=== PATIENT | female | born 1960 | race African-American/Black ===

== ENCOUNTER 2025-04-27 10:17 | Outpatient (AMB) | payer OTHER, SELFPAY ==
--- OUTSIDE RECORDS SUMMARY | 2024-05-26 09:30 | XMS_ITS ---
Author Organization [facility] Address [address] [place] [address] Care Team Providers Care Bonding Molder Name Role Phone Yanni Nguyen Primary Care Provider Unavaila ble Hui Fontaine Unavailable [phone] Alberto Dooley [phone] Encounters Encounter Location Date Provider Diagnosis [address] [address] 05/26/2024 Alberto Dooley Plan Of Treatment No Information Progress Notes * Adrienne BRYSON RDOB: [birth year] (64 yo F)Acc No.[id number]:05/26/2024 Progress Note Patient: Lisa WEBSTER Adrienne Ruiz Provider: Chase Dooley D.P.M. :1960 A ge:63 Y S ex:Female Date:05/26/2024 [facility] Pcp:Yanni Nguyen Subjective: * Chief Complaints: * * Medical History: Objective: * Vitals: Assessment: Plan: * Treatment: * Images: * The named appointment provid er may or may not be the originator of this progress note, and it is not deemed complete until electronically signed by the appointment provider. Sign off status: Pending * Provider: Chase Dooley D.P.M. Date: 0 05/26/2024 Generated for Alin hays/Fasánchez/eTransmitting on: 06/28/2024 12:25 PM EST
--- OUTSIDE RECORDS SUMMARY | 2024-05-31 03:00 | XMS_ITS ---
Author Organization [facility] Address [address] [place] [address] Care Team Providers Care Expeller Operator Name Role Phone Yanni Nguyen Primary Care Provider Unavaila ble Hui Fontaine Unavailable [phone] Alberto Dooley [phone] Encounters Encounter Location Date Provider Diagnosis [address] [address] 05/31/2024 Alberto Dooley Plan Of Treatment No Information Progress Notes * Adrienne BRYSON RDOB: [birth year] (64 yo F)Acc No.[id number]:05/31/2024 Progress Note Patient: Lisa WEBSTER Adrienne Ruiz Provider: Chase Dooley D.P.M. :1960 A ge:63 Y S ex:Female Date:05/31/2024 [facility] Pcp:Yanni Nguyen Subjective: * Chief Complaints: * * Medical History: Objective: * Vitals: Assessment: Plan: * Treatment: * Images: * The named appointment provid er may or may not be the originator of this progress note, and it is not deemed complete until electronically signed by the appointment provider. Sign off status: Pending * Provider: Chase Dooley D.P.M. Date: 0 05/31/2024 Generated for Alin hays/Fasánchez/eTransmitting on: 06/28/2024 12:25 PM EST
--- NOTE | 2025-04-27 10:19 | MHC.PC.OV ---
Vital Signs 04/27/25 10:29 Height 5 ft 8.39 in Weight 230 lb BMI 34.6 BP 110/66 Blood Pressure Location Lt brachial Position Sitting Respiration 18 Pulse 76 Pulse Source Pulse Oximeter Temp 97.7 F Temp Source Temporal Artery Scan Pulse Oximetry (%) 98 Oxygen Delivery Method Room Air Intake Visit Reasons: Re-establish/Physical Compliance Intern Required: No Accompanied by: Self / Same As Patient Allergies codeine Adverse Reaction (Intermediate, Verified 04/27/25 10:19) Hallucinations hydromorphone (From Dilaudid) Adverse Reaction (Intermediate, Verified 04/27/25 10:19) Hallucinations latex Adverse Reaction (Intermediate, Verified 04/27/25 10:19) Itching methocarbamol (From Robaxin) Adverse Reaction (Intermediate, Verified 04/27/25 10:19) Abdominal Pain moxifloxacin (From Avelox) Adverse Reaction (Intermediate, Verified 04/27/25 10:19) urticaria oxycodone Adverse Reaction (Intermediate, Verified 04/27/25 10:19) Hallucinations sulfamethoxazole (From Bactrim) Adverse Reaction (Intermediate, Verified 04/27/25 10:19) Hives trimethoprim (From Bactrim) Adverse Reaction (Intermediate, Verified 04/27/25 10:19) Hives naproxen Adverse Reaction (Unknown, Verified 04/27/25 10:19) Unknown Medication List - Last Reconciled 04/27/25 by Yanni Nguyen MD acetaminophen ER 1,300 mg PO TID PRN ammonium lactate 12% appl topical BID betamethasone valerate 0.1% topical calcium carbonate-vitamin D3 600 mg-10 mcg (400 unit) 1 tab PO DAILY cyanocobalamin (vitamin B-12) 1,000 mcg PO DAILY diclofenac sodium 1% 2 grams topical QID epinephrine IM flaxseed oil 1,000 mg PO DAILY fluocinolone and shower cap 0.01 % topical 2XW fluoride (sodium) 1.1% dental BID ketoconazole 2% topical lactobacillus combination no.4 (Probiotic) 3,000,000,000 cells PO DAILY levocetirizine 5 mg PO DAILY lidocaine 4% 1 patch topical lorazepam 1 mg PO DAILY PRN magnesium oxide 400 mg PO DAILY melatonin 1 - 2 mg PO BEDTIME polyethylene glycol 3350 17 grams PO DAILY riboflavin (vitamin B2) (Vitamin B-2) 200 mg PO BID triamcinolone acetonide 0.1% topical 3XW Tobacco use date assessed: 04/27/25 Fall risk assessment: No Falls in past year Last assessed Fall Risk: 04/27/25 Dental Screening Dental Screen Date: 04/27/25 Did you have a dental visit in the last 12 months?: Yes Did you have a dental problem in the last 6 months where you did not have access to dental care?: No Was dental information given to patient?: Patient has dentist HPI HPI Comments History of Present Illness Details The patient is a 64-year-old female presenting for a physical and to establish care. Left Knee Osteoarthritis: The patient underwent left knee surgery for a meniscus tear on February 24. Post-operatively, she continued to have significant pain, described as bone grinding, which was treated first with a cortisone injection and subsequently with a gel injection. She reports the gel injection provided significant relief, although some soreness persists at the surgical site. She was informed she can receive gel injections every six months. She has experienced intermittent swelling in the front of the knee but denies swelling in the back of the knee or down the leg, though she does report calf tightness described as Korey horses. Several ultrasounds were performed post-operatively to rule out a blood clot. She had been attending physical therapy, which was paused until she received the gel injection, and she plans to resume it soon. Obesity: The patient's weight is 230 lbs. She was previously taking Zepbound for weight loss and stopped in September due to significant nausea when the dose was increased to 7.5 mg. She reports that the 5 mg dose was effective without causing nausea, though the weight loss was slower. Tinnitus: The patient has a history of tinnitus, which is present in both ears but is more pronounced on the right side. She reports the ringing can be loud enough that she catches herself speaking loudly to compensate. She previously saw an ENT specialist but feels the issue was not fully addressed at that time. Allergic Rhinitis: The patient reports significant allergy drainage, leading to episodes of choking, especially in her sleep. She describes a sensation of lumps in her throat and waking up at night sneezing with copious mucus. Urinary Incontinence: The patient reports episodes of urinary incontinence that began after her recent knee surgery. She states that when she gets up to use the bathroom at night, she is unable to move quickly enough due to knee stiffness, resulting in incontinence before she reaches the toilet. She was previously on Myrbetriq but stopped taking it over a year ago. Anxiety: The patient has a history of anxiety. She was prescribed hydroxyzine but finds it causes excessive sluggishness, even at a partial dose. She has a prescription for lorazepam as needed, which she has used sparingly and finds effective. She recently experienced an anxiety-provoking incident but was able to manage it with coping strategies without medication. [facility] Care Team [facility] Social History: - Nutrition: The patient reports eating well, consuming salads, and avoiding excessive pork and fried foods. - Exercise: Activity has been limited due to her knee condition; she expresses interest in trying water aerobics. [facility] Medical History (Updated 04/27/25 @ 14:08 by Yanni Nguyen MD) Urinary incontinence Screening mammogram for breast cancer Tinnitus Mixed hyperlipidemia Vitamin B12 deficiency (dietary) anemia Vitamin D deficiency Thyroid nodule Submandibular gland tenderness Migraines Unspecified asthma GERD (gastroesophageal reflux disease) SVT (supraventricular tachycardia) Generalized anxiety disorder Surgical History (Updated 04/27/25 @ 09:21 by Yanni Nguyen MD) H/O hemorrhoidectomy H/O gastric sleeve H/O: hysterectomy History of colonoscopy (~10/13/24) Family History (Updated 04/27/25 @ 09:21 by Yanni Nguyen MD) Mother Alzheimer's dementia Other Breast cancer Cerebral arterial aneurysm DVT (deep venous thrombosis) Diabetes mellitus Kidney disease Pacemaker Thromboembolism Social History Housing: House Patient Tobacco Use Status: Never used Tobacco e-Cigarette/Vaping Use: Former Use service: No Current occupational status: disabled Questionnaire PHQ-9 Over the last 2 weeks, how often have you been bothered by any of the following problems? 1. Little interest or pleasure in doing things: several days 2. Feeling down, depressed, or hopeless: several days 3. Trouble falling or staying asleep, or sleeping too much: several days 4. Feeling tired or having little energy: several days 5. Poor appetite or overeating: not at all 6. Feeling bad about yourself - or that you are a failure or have let yourself or your family down: not at all 7. Trouble concentrating on things, such as reading the newspaper or watching television: several days 8. Moving or speaking so slowly that other people could have noticed. Or the opposite - being so fidgety or restless that you have been moving around a lot more than usual: not at all 9. Thoughts that you would be better off or of hurting yourself in some way: not at all Total score: 5 Depression Screening Interpretation: Positive Depression Screening Follow-up: Existing condition Depression Screening Done: Yes Source: Developed by Drs. Pb Posadas, Beth Rincon, Toño Howell and colleagues, with an educational hector from [employer]. Thrive Questionnaire Date Thrive assessed: 04/27/25 I am a: Patient What is your living situation today?: I have a steady place to live Within the past 12 months, did the food you bought not last and you didn't have the money to get more?: Never true Within the past 12 months, did you worry whether your food would run out before you got money to buy more?: Never true Do you have trouble paying for medicines?: No Do you have trouble getting transportation to medical appointments?: No Do you have trouble paying your heating and electricity bill?: Yes Do you have trouble taking care of your child, family member or friend?: No Do you have trouble with day-to-day activities such as bathing, preparing meals, shopping, managing finances, etc.?: Yes Are you currently unemployed and looking for a job?: Yes Are you interested in more education?: Yes Please select the resources that you would like help with: Housing/Jail Currently or been in a relationship where the following occur: No concerns reported THRIVE Score: 1 AUDIT C Alcohol Use Questionnaire (AUDIT-C) 1. How often do you have a drink containing alcohol?: Never 3. How often do you have six or more drinks on one occasion?: Never Total Score: 0 DARREN-7 AMB Questionnaire DARREN-7 Date DARREN - 7 assessed: 04/27/25 Feeling nervous, anxious, or on edge: 1 = Several days Not being able to stop or control worryin = Several days Worrying too much about different things: 1 = Several days Trouble relaxin = Several days Being so restless that it is hard to sit still: 1 = Several days Becoming easily annoyed or irritable: 1 = Several days Feeling afraid as if something awful might happen: 0 = Not at all Total DARREN-7 score (0-4 normal; 5-9 mild; 10-14 moderate; 15-21 severe): 6 Source: Developed by Drs. Pb Posadas, Beth Rincon, Toño Howell and colleagues, with an educational hector from [employer]. Review of Systems Narrative Review of Systems - Constitutional: Reports gaining some weight back since stopping weight loss medication. - HEENT: Reports bilateral tinnitus, worse in the right ear. - Respiratory: Reports post-nasal drip causing choking, especially at night, and waking up sneezing. - Cardiovascular: Denies chest pain; known history of arrhythmia. - Musculoskeletal: per hpi - Genitourinary: Reports new onset of urge incontinence since her knee surgery, especially at night when mobility is limited. - Psychiatric: per hpi Physical exam (Primary Care) Vital Signs: Last Vital Signs Temp 97.7 F 04/27/25 10:29 Pulse 76 04/27/25 10:29 Resp 18 04/27/25 10:29 BP 110/66 04/27/25 10:29 Pulse Ox 98 04/27/25 10:29 Oxygen Delivery Method Room Air 04/27/25 10:29 BMI result Body Mass Index 34.6 Tobacco/Smoking Status: Tobacco use Status Tobacco use date assessed 04/27/25 04/27/25 10:33 Patient Tobacco Use Status Never used Tobacco 04/27/25 10:33 e-Cigarette/Vaping Use Former Use 04/27/25 10:33 PHQ-9: PHQ-9 Score PHQ-9: Total score 5 04/27/25 11:20 Depression Screening Interpretation: Positive Depression Screening Follow-up: Existing condition Thrive Assessment: Date of Thrive Assessment Date Thrive assessed 04/27/25 04/27/25 10:33 Currently or been in a relationship where the following occur: No concerns reported Narrative Physical Exam - Gen: NAD - HEENT: Ears are clear bilaterally. - Oropharynx is clear without erythema. - Neck is supple without lymphadenopathy in the neck or supraclavicular areas, though a small palpable lymph node is noted on the left lower cervical side. - Cardiovascular: Normal heart sounds and regular rhythm with a soft murmur noted. - Pulmonary: Lungs are clear to auscultation bilaterally. - Abdomen: Normoactive bowel sounds, soft, non-tender, and non-distended. - Extremities: No swelling noted in the legs. Coding Level of Care Code Est Pt Prev Care 40-64y(50703) Complex visit Add On G2211 Diagnoses Submandibular gland tenderness K11.8 SVT (supraventricular tachycardia) I47.10 Assessment & Plan Assessment & Plan (1) Submandibular gland tenderness: Code(s): K11.8 - Other diseases of salivary glands Category: Medical (2) Submandibular gland tenderness: Code(s): K11.8 - Other diseases of salivary glands Category: Medical (3) SVT (supraventricular tachycardia): Code(s): I47.10 - Supraventricular tachycardia, unspecified Category: Medical Plan Assessment and Plan 1. Left Knee Osteoarthritis - The patient's condition has improved with a gel injection but she continues to have soreness and stiffness, which is impacting her mobility. - The plan is for her to resume physical therapy. 2. Obesity - The patient previously had success with Zepbound but experienced dose-limiting nausea. - The plan is to prescribe Mounjaro 2.5 mg, and titrate to 5 mg in four weeks if tolerated. - Encouraged low-impact exercise such as water aerobics. 3. Tinnitus - The patient reports bothersome bilateral tinnitus (R>L). - The plan is to refer her to the in-house ENT specialist and the hearing center for an updated audiogram. 4. Allergic Rhinitis - The patient has significant symptoms of post-nasal drip and congestion. - The plan includes a referral to an dispensary attendant (Dr. Russell or Dr. Kim) and an order for a neck/thyroid ultrasound. - It was also recommended that she use a humidifier at home 5. Urge Incontinence - - The plan is to provide a prescription for adult pull-up briefs to be faxed to her insurance per patient preference 6. Generalized Anxiety Disorder - Her anxiety appears to be managed with coping mechanisms and occasional use of lorazepam. - The plan is to continue to monitor, therapy evaluation when needed and sparing use of lorazepam 1 mg as needed 7. Health Maintenance - The patient is due for a screening mammogram, which will be ordered. - Lab work will be done today to check a comprehensive panel including vitamin levels. - She is up-to-date on her flu and RSV vaccines and is completing her Shingrix series. 8. Follow-up - The patient will follow up in approximately 5 months Plan - Labs: Will obtain bloodwork today for a comprehensive panel, including vitamin levels (D, B12). - Medications: Prescribe Mounjaro 2.5 mg for weight management, with instructions to message in four weeks to potentially increase to 5 mg. - Continue lorazepam 1 mg as needed for anxiety; patient is aware she can break the tablet in half. - Referrals: [facility], and an dispensary attendant (Dr. Russell or Dr. Kim). - Imaging: Order a screening mammogram and an ultrasound of the neck and thyroid. - Durable Medical Equipment: Provide a script for a humidifier and adult pull-up briefs to [employer] insurance. - Patient Counseling: Encouraged considering water aerobics for low-impact exercise, and journaling for anxiety. - Follow-up: Schedule a follow-up visit in approximately 5 months. Discussion Notes I met with the patient today to establish care and perform a physical exam. We discussed her persistent left knee pain following meniscal surgery, noting the significant improvement she experienced with a gel injection, and I encouraged her to resume physical therapy. We addressed her weight management and previous intolerance to Zepbound due to nausea. I outlined a plan to start Mounjaro 2.5 mg, which is now covered by her insurance, with a slow titration to 5 mg as tolerated to minimize side effects. I also recommended exploring low-impact exercise like water aerobics. I explained the plan for her chronic tinnitus, which includes a referral to our new ENT specialist and an updated hearing test at our hearing center. For her allergy symptoms, I recommended using a humidifier, provided a prescription for one, and will refer her to an dispensary attendant. We will also get an ultrasound of her neck to assess the glands. I outlined the plan for health screenings, including ordering a mammogram and comprehensive bloodwork. Patient Instructions - Please go to the lab here today to get your blood drawn. - We have put in orders for you to get a screening mammogram and an ultrasound of your neck. - The scheduling department will call you to make these appointments. - Our office will make referrals for you to see an ear, nose, and throat (ENT) doctor, an behavioral health specialist, and the hearing center. - I will prescribe Mounjaro to help with weight loss. - You will start at the 2.5mg dose; please contact me through the patient portal in four weeks to let me know how you are doing. - It is a good idea to try low-impact exercise like water aerobics to help with your knee and overall health. Orders: Orders US soft tiss head and/or neck 04/27/25 E04.1 - Nontoxic single thyroid nodule, K11.8 - Other diseases of salivary glands Lipid Panel 04/27/25 D51.8 - Other vitamin B12 deficiency anemias, E55.9 - Vitamin D deficiency, unspecified, E78.2 - Mixed hyperlipidemia, I47.10 - Supraventricular tachycardia, unspecified, K11.8 - Other diseases of salivary glands Folate 04/27/25 D51.8 - Other vitamin B12 deficiency anemias, E55.9 - Vitamin D deficiency, unspecified, E78.2 - Mixed hyperlipidemia, I47.10 - Supraventricular tachycardia, unspecified, K11.8 - Other diseases of salivary glands TSH reflex Free T4 04/27/25 D51.8 - Other vitamin B12 deficiency anemias, E55.9 - Vitamin D deficiency, unspecified, E78.2 - Mixed hyperlipidemia, I47.10 - Supraventricular tachycardia, unspecified, K11.8 - Other diseases of salivary glands Vitamin B12 04/27/25 D51.8 - Other vitamin B12 deficiency anemias, E55.9 - Vitamin D deficiency, unspecified, E78.2 - Mixed hyperlipidemia, I47.10 - Supraventricular tachycardia, unspecified, K11.8 - Other diseases of salivary glands Vitamin D 25-OH Total 04/27/25 D51.8 - Other vitamin B12 deficiency anemias, E55.9 - Vitamin D deficiency, unspecified, E78.2 - Mixed hyperlipidemia, I47.10 - Supraventricular tachycardia, unspecified, K11.8 - Other diseases of salivary glands Magnesium 04/27/25 D51.8 - Other vitamin B12 deficiency anemias, E55.9 - Vitamin D deficiency, unspecified, E78.2 - Mixed hyperlipidemia, I47.10 - Supraventricular tachycardia, unspecified, K11.8 - Other diseases of salivary glands Complete Blood Count Auto Diff 04/27/25 D51.8 - Other vitamin B12 deficiency anemias, E55.9 - Vitamin D deficiency, unspecified, E78.2 - Mixed hyperlipidemia, I47.10 - Supraventricular tachycardia, unspecified, K11.8 - Other diseases of salivary glands Comprehensive Met. Panel 04/27/25 D51.8 - Other vitamin B12 deficiency anemias, E55.9 - Vitamin D deficiency, unspecified, E78.2 - Mixed hyperlipidemia, I47.10 - Supraventricular tachycardia, unspecified, K11.8 - Other diseases of salivary glands IRON PROFILE 04/27/25 D51.8 - Other vitamin B12 deficiency anemias, E55.9 - Vitamin D deficiency, unspecified, E78.2 - Mixed hyperlipidemia, I47.10 - Supraventricular tachycardia, unspecified, K11.8 - Other diseases of salivary glands Hemoglobin A1c 04/27/25 D51.8 - Other vitamin B12 deficiency anemias, E55.9 - Vitamin D deficiency, unspecified, E78.2 - Mixed hyperlipidemia, I47.10 - Supraventricular tachycardia, unspecified, K11.8 - Other diseases of salivary glands MM screening mammo BI 04/27/25 Z12.31 - Encounter for screening mammogram for malignant neoplasm of breast Referrals Ear/Nose/Throat Referral H93.19 - Tinnitus, unspecified ear Speech and Hearing Referral H91.90 - Unspecified hearing loss, unspecified ear, H93.19 - Tinnitus, unspecified ear Medications: New tirzepatide (Mounjaro) for 4 weeks 2.5 mg (0.5 mL) subcut QWEEK 2 mL 3RF [ALWAYS DISCRETE PULL UPS] USE FOUR TIMES PER DAY 120 ea 11RF URINARY INCONTINENCE R32 - Unspecified urinary incontinence [ALWAYS DISCRETE PULL UPS] USE FOUR TIMES PER DAY 120 ea 11RF URINARY INCONTINENCE R32 - Unspecified urinary incontinence [ALWAYS DISCRETE PULL UPS] USE FOUR TIMES PER DAY 120 ea 11RF URINARY INCONTINENCE R32 - Unspecified urinary incontinence humidifiers DX: J45.909 ASTHMA USE DAILY 1 ea 0RF humidifiers DX: J45.909 ASTHMA USE DAILY 1 ea 0RF Patient Instructions: CAN CHECK TO SEE IF DR. CECLI ARIZMENDI OR JEN KIM ARE IN YOUR NETWORK FOR ALLERGY EVALUATION
[2025-04-27 10:29] VITALS: BP 110/66; PULSE 76; RESP 18; TEMP 36.5; O2SAT 98; BMI 34.6
--- OUTSIDE RECORDS SUMMARY | 2025-04-27 12:25 | XMS_ITS | Encounter Summary ---
Author Organization [employer] Address [address] [place] [address] Care Team Providers Care Web Analytics Developer Name Role Phone Unavailable Primary Care Provider Unavailabl e Reason for Visit * Reason Comments Med Refill Encounter Details Date Type Department Care Team (Late st Contact Info) Description 12/08/2023 Refill [facility] [address] [place] [address] Kizzy Lipscomb BDS Social History Tobacco Use Types Packs/Day Years Used Date Smoking Tobacco: Never Smokeless Tobacco: Never Comments Unknown Sex and Gender Information Value Date Recorded Sex Assigned at Female 03/24/2022 10:26 AM EDT Legal Sex Female 10:26 AM EDT Gender Identity Female 04/07/2023 9:00 AM EST Sexual Orientation Choose not to disclose 2022 9:00 AM EST documented as of this encounter Miscellaneous Notes * Telephone Encounter - Kizzy Lipscomb BDS - 12/08/2023 4:11 PM EDT Approving, but needs appt for additional refills. documented in this encounter Plan of Treatment Not on file documented as of this encounter Visit Diagnoses Not on filedocumented in this encounter
--- OUTSIDE RECORDS SUMMARY | 2025-04-27 12:25 | XMS_ITS | Patient Health Record ---
[facility] Organization [facility]ent [facility] [employer] Address [address] [place] [address] Care Team Providers Care Geriatric Physical Therapist Name Role Phone Yanni Nguyen Primary Care Provider Unavaila Hui Aguilar Unavailable [phone] Alberto Dooley Unavailable [phone] Allergies Allergen (clinical drug ingredient) Drug/Non Drug Allergy documented on EMR Reaction Allergy Type Onset Date Status ibuprofen Advil Unknown Drug Allergy Active Aleve Unknown Drug Allergy Active Motrin Unknown Drug Allergy Active Latex Latex Unknown Allergy Active Penicillin Unknown Drug Allergy Active Reason For Referral No Information Medications Medication SIG (Take, Route, Frequency, Duration) Notes Start Date End Date Status Doxycycline Hyclate 100 MG 1 capsule Orally Once a day; Duration: 10 day(s) 09/17/2022 Not-Taking Ammonium Lactate 12 % APPLY TO AFFECTED AREA EXTERNALLY TWICE A DAY 30 DAYS; Duration: 30 Active Multivitamin Active Terbinafine HCl 250 MG 1 tablet Orally O nce a day for 7 days then stoop for 3 weeks repeat cyscle 90 days; Duration: 90 days Not-Taking Terbinafine HCl 250 MG 1 tablet Orally O nce a day fro 7 days then stop for 3 weeks repeat cycle; Duration: 7 days 09/30/2022 Not-Taki ng Minoxidil Not-Taking LORazepam 1 MG 1 tablet at bedtime as needed Orally Once a day PRN Not-Taking LamISIL Not-Taking Ammonium Lactate 12 % 1 application Externally Twice a day; Duration: 30 days 01/10/2022 Not-Taking Lamisil Not-Taking Tylenol Active LORazepam 1 MG as directed Orally Not-Taking Immunizations Vaccine Route Administration Date Status Comme nts COVID-19 Pfizer BioNTech Vaccine Unknown 05/27/2021 Administered 08/14/20 09/05/20 Social History Tobacco Use: Social History Observation Description Date Details (start date - stop date) Never Smoker NA - NA Tobacco Use/Smoking Question Answer Notes Are you a: nonsmoker Additional Findings: Tobacco Non-User Current no n-smoker Alcohol Screen Question Answer Notes Did you have a drink contain ing alcohol in the past year? Yes How often did you have 6 or more drinks on one occasion in the past year? Less than monthly (1 point) Points 1 Interpretation Negative Tobacco use other than smoking: Question Answer Notes Are you an other tobacco user? No Problems Problem Type SNOMED Code ICD Code Onset Dates Problem Status W/U Status Risk Notes Problem Acquired hammer toe of right foot (8189594007786847 ) Other hammer toe(s) (acquired), right foot (M20.41) Active confirmed Problem Acquired hammer toe of left foot (3578027150911450 ) Other hammer toe(s) (acquired), left foot (M20.42) Active confirmed Problem Non-pressure chronic ulcer of other part of left foot limited to breakdown of skin (L97.521) Active confirmed Problem Acquired deformity of right foot (disorder) (314627036) Other acquired deformities of right foot (M21.6X1) Active confirmed Problem Localized, primary osteoarthritis of the ankle and/or foot (556820401) Osteoarthritis of right ankle and foot (M19.071) Active confirmed Problem Localized, primary osteoarthritis of the ankle and/or foot (906566501) Osteoarthritis of left ankle and foot (M19.072) Active confirmed Problem PlantarFlexion o f metatarsal of left foot (M21.6X2) Active confirmed Encounters Encounter Location Date Provider Diagnosis [facility] [address] [place] [address] 05/26/2024 Alberto Dooley Plan Of Treatment Pending Test Test Name Order Date *Liver Function Test (LFT) 11/14/2022 *Liver Function Test (LFT) 04/08/2023 [id number] NAIL, 6 OR MORE 01/10/2022 [id number] Plate 07/02/2021 [id number] Plate 07/17/2021 [id number] 09/17/2022 80570- Debride <25 sq cm 09/30/2022 40172- Debride <25 sq cm 07/31/2021 42007- Debride <25 sq cm 07/17/2021 Insurance Providers Payer Name Payer Address Payer Phone Subscriber Number Group Number Insured Name Patient Relationship to Insured Coverage Start Date Coverage End Date [facility] [employer] Claims [address] [place] [id number] Adrienne Martinez Self - patient is the insured Medical (General) History Medical History History ICD Code Anxiety Back,Hip,and Knee pain Fibromyalgia Surgical History Surgery Date(Month/Year) heart ablation Hospitalization History Reason Date(Month/Year) [facility]- stomach pain 04/2021
--- OUTSIDE RECORDS SUMMARY | 2025-04-27 12:25 | XMS_ITS | Encounter Summary ---
Author Organization [facility] Address [address] [place] [address] Phone Care Team Providers Care Cisco Network Architect Name Role Phone Yanni Nguyen MD Primary Care Provider + Encounter Details Date Type Department Care Team (Late st Contact Info) Description 04/22/2021 Ancillary Orders [facility],Outside Imaging [address] [place] [address] System, Provider Not In, [facility] [address] [address] Social History Tobacco Use Types Packs/Day Years Used Date Smoking Tobacco: Never Smokeless Tobacco: Never Alcohol Use Standard Drinks/Week Comments Yes 0 (1 standard drink = 0.6 oz pur e alcohol) socailly Comments No Sex and Gender Information Value Date Recorded Sex Assigned at Not on file Legal Sex Female 9:47 PM EDT Gender Identity Not on file Sexual Orientation Not on file documented as of this encounter Plan of Treatment Not on file documented as of this encounter Results * US Breast Outside (No Interpretation) (03/01/2021 12:05 AM EDT) Narrative SYSTEMGENERATED, DOCUMENTATION - 04/22/2021 11:31 AM EST This study is for PACS storage only and not for interpretation. us Provider Not In System PhD IMG OUTSIDE IMAGING W /OUT INTERPRETATION Final Result * Mammogram Outside (No Interpretation) (03/01/2021 12:00 AM EDT) Narrative SYSTEMGENERATED, DOCUMENTATION - 04/22/2021 11:30 AM EST This study is for PACS storage only and not for interpretation. us Provider Not In System PhD IMG OUTSIDE IMAGING W /OUT INTERPRETATION Final Result * US Breast Outside (No Interpretation) (03/28/2016 12:00 AM EDT) Narrative SYSTEMGENERATED, DOCUMENTATION - 04/22/2021 11:32 AM EST This study is for PACS storage only and not for interpretation. us Provider Not In System PhD IMG OUTSIDE IMAGING W /OUT INTERPRETATION Final Result documented in this encounter Visit Diagnoses Not on filedocumented in this encounter Care Teams Cisco Network Architect Relationship Specialty Start Date End Date Yanni Nguyen MD PCP - General Internal Medicine 04/05/18 documented as of this encounter Additional Source Comments The information contained in this document represents components of the legal health record. It is not the complete legal health record.[facility]
--- OUTSIDE RECORDS SUMMARY | 2025-04-27 12:25 | XMS_ITS | Encounter Summary ---
Author Organization [employer] Address [address] [facility] [address] [place] [address] Care Team Providers Care Supervisor Waterproofing Name Role Phone Unavailable Primary Care Provider Unavailabl e Encounter Details Date Type Department Care Team (Late st Contact Info) Description 05/21/2023 Abstract [facility] ADULT DENTAL [address] [place] [address] Melissa Ortiz DDS [address] [place] [address] Social History Tobacco Use Types Packs/Day Years Used Date Smoking Tobacco: Never Smokeless Tobacco: Never Comments Unknown Sex and Gender Information Value Date Recorded Sex Assigned at Female 03/24/2022 10:26 AM EDT Legal Sex Female 10:26 AM EDT Gender Identity Female 04/07/2023 9:00 AM EST Sexual Orientation Choose not to disclose 2022 9:00 AM EST documented as of this encounter Plan of Treatment Not on file documented as of this encounter Visit Diagnoses Not on filedocumented in this encounter
--- OUTSIDE RECORDS SUMMARY | 2025-04-27 12:25 | XMS_ITS | Clinical Summary ---
Author Organization [employer] Address [address] [facility] [address] [place] [address] Care Team Providers Care Exchange Trouble Shooter Name Role Phone Unavailable Primary Care Provider Unavailabl e Allergies Active Allergy Reactions Criticality Noted Date Comments Codeine Hives 06/03/2018 Ibuprofen Hives 04/09/2023 Naproxen 04/09/2023 Oxycodone Hallucinations,Hives 06/03/2018 Penicillin V Hives 04/09/2023 Sulfamethoxazole-Trimethoprim Hives 2019 Medications Acetaminophen Extra Strength 500 MG tablet Take 2 tablets by mouth 3 times daily. 03/12/2023 Active Azelastine HCl 137 MCG/SPRAY solution SPRAY 2 SPRAYS INTO EACH NOSTRIL TWICE A DAY 03/16/2023 Active Calcium + Vitamin D3 600-10 MG-MCG tablet Take 1 tablet by mouth in the morning. 09/22/2022 Active [facility] Medicated Heat Patch 0.025 % patch APPLY 1 PATCH FOR 60 MIN UP TO 3 TIMES A DAY 01/20/2023 Active cyanocobalamin (Vitamin B-12) 1000 MCG tablet Take 1,000 mcg by mouth in the morning. 12/11/2022 Active levocetirizine (Xyzal) 5 MG tablet Take 5 mg by mouth in the morning. 03/16/2023 Active meloxicam (Mobic) 7.5 MG tablet TAKE 1 TABLET BY MOUTH EVERY MORNING WITH FOOD. 07/28/2022 Active minoxidil (Loniten) 2.5 MG tablet 03/30/2023 Active Myrbetriq 25 MG 24 hr tablet TAKE 1 TABLET BY MOUTH EVERY DAY DO NOT CRUSH OR CHEW 03/09/2023 Active GaviLAX 17 GM/SCOOP powder 04/06/2023 Act yas Sodium Fluoride 5000 Sensitive 1.1-5 % gel BRUSH TWICE A DAY AND SPIT IT OUT DIRECTED 03/16/2023 Active lidocaine (Lidoderm) 5 % patch APPLY 1 PATCH TO SKIN DIRECTED 12 HRS ON 12 HRS OFF 07/30/2023 Active Sodium Fluoride 5000 PPM 1.1 % paste PLEASE USE PEA SIZE TO BRUSH YOUR TEETH TWICE DAILY. SPIT AFTER BRUSHING. DO NOT RINSE. 100 g 08/22/2024 Active Active Problems No known active problems Encounters Date Type Department Care Team Description 02/07/2025 8:00 AM EDT Office Visit [facility] ADULT DENTAL [address] [place] [address] Opal Good DDS from Last 3 Months Social History Tobacco Use Types Packs/Day Years Used Date Smoking Tobacco: Never Smokeless Tobacco: Never Tobacco Cessation:Counseling Given: Not Answered Comments Unknown Sex and Gender Information Value Date Recorded Sex Assigned at Female 03/24/2022 10:26 AM EDT Legal Sex Female 10:26 AM EDT Gender Identity Female 04/07/2023 9:00 AM EST Sexual Orientation Choose not to disclose 2022 9:00 AM EST Last Filed Vital Signs Vital Sign Reading Time Taken Comments Blood Pressure 124/82 03/15/2024 9:28 AM EDT Pulse 60 03/15/2024 9:28 AM EDT Temperature - - Respiratory Rate - - Oxygen Saturation - - Inhaled Oxygen Concentration - - Weight - - Height - - Body Mass Index - - Plan of Treatment Health Maintenance Due Date Last Done Comments CT Colonography 1960 Depression Screening 1960 FIT DNA/Cologuard 1960 FIT 1960 FOBT 1960 HIV Screening 1960 Lipid Panel 1960 SDOH Screening 1960 Sigmoidoscopy 1960 Disability Screening 1960 Alcohol/Substance Use Screening 1972 Hepatitis C Screening 1978 Pap Smear 1981 Cervical Cancer Screening 1990 HPV/Cotest 1990 Mammogram 2000 Pneumococcal Vaccine: 50+ Years (2 of 2 - PCV) 05/03/2019 05/03/2018 DTaP/Tdap/Td Vaccines (2 - Td or Tdap) 06/27/2024 06/27/2014 Dental Prophylaxis 09/14/2024 03/15/2024, 0 07/09/2023, 04/24/2017 Dental Oral Exam 09/27/2024 03/29/2024, 10/2022, 04/14/2017 COVID-19 Vaccine ( season) 2025 03/19/2022, 05/27/2021, 09/05/2020, Additional history exists Dental X-Ray: Bitewings 03/16/2025 03/15/20 24, 04/29/2023, 04/09/2023, Additional history exists Zoster Vaccines (2 of 2) 04/02/2025 02/05/2025 Tobacco Screening 02/07/2026 02/07/2025 Dental X-Ray: Full Mouth 03/16/2027 024, 04/29/2023, 04/14/2017 Colonoscopy 10/13/2034 10/13/2024 Colorectal Cancer Screening 10/13/2034 Influenza Vaccine Completed 02/05/2025, , 03/19/2023, Additional history exists RSV Patients and Patients Aged 60 years or older Completed 02/05/2025 HIB Vaccines Aged Out No longer eligi ble based on patient's age to complete this topic HPV Vaccines Aged Out No longer eligi ble based on patient's age to complete this topic Hepatitis A Vaccines Aged Out No long er eligible based on patient's age to complete this topic Hepatitis B Vaccines Aged Out No long er eligible based on patient's age to complete this topic IPV Vaccines Aged Out No longer eligi ble based on patient's age to complete this topic Meningococcal B Vaccine Aged Out No l onger eligible based on patient's age to complete this topic Meningococcal Vaccine Aged Out No suad thong eligible based on patient's age to complete this topic RSV under 20 months Aged Out No longe r eligible based on patient's age to complete this topic Rotavirus Vaccines Aged Out No longer eligible based on patient's age to complete this topic Procedures Procedure Name Priority Date/Time Associated Diagnosis Comments ADJUST PARTIAL DENTURE - MANDIBULAR Routine 02/07/2025 8:00 AM EDT CASE PRESENTATION, DETAILED AND EXTENSIVE TREATMENT PLANNING Routine 02/07/2025 8:00 AM EDT PERIODIC ORAL EVALUATION - ESTABLISHED PATIENT Routine 03/29/2024 11:00 AM EST PROPHYLAXIS - ADULT Routine 03/15/2024 9 :00 AM EDT INTRAORAL - COMPLETE SERIES OF RADIOGRAPHIC IMAGES Routine 03/15/2024 8:00 AM EDT from Last 3 Months or Most Recently Relevant to Health Maintenance Insurance [facility]
--- OUTSIDE RECORDS SUMMARY | 2025-04-27 12:25 | XMS_ITS | Encounter Summary ---
Author Organization [employer] Address [address] [facility] [address] [place] [address] Care Team Providers Care Computer Artist Name Role Phone Unavailable Primary Care Provider Unavailabl e Reason for Visit * Reason Comments Med Refill Encounter Details Date Type Department Care Team (Late st Contact Info) Description 10/14/2023 Refill [facility] ADULT DENTAL [address] [place] [address] Kizzy Lipscomb BDS Social History Tobacco Use [...] Telephone Encounter - Kizzy Lipscomb BDS - 10/14/2023 8:50 AM EDT Approving, but needs appt for additional refills. documented in this encounter Plan of Treatment Not on file documented as of this encounter Visit Diagnoses Not on filedocumented in this encounter
--- OUTSIDE RECORDS SUMMARY | 2025-04-27 12:25 | XMS_ITS | Encounter Summary ---
Author Organization [facility] Address [address] [place] [address] Phone Care Team Providers Care Performance Improvement Consultant Name Role Phone Yanni Nguyen MD Primary Care Provider + Encounter Details Date Type Department Care Team (Late st Contact Info) Description 04/23/2021 Ancillary Orders [facility],Outside Imaging [address] [place] [address] System, Provider Not In, [facility] [address] [address] Social History Tobacco Use Types Packs/Day Years [...] documented as of this encounter Results * Mammogram Outside (No Interpretation) (10/24/2020 12:00 AM EDT) Narrative SYSTEMGENERATED, DOCUMENTATION - 04/23/2021 10:23 AM EST This study is for PACS storage only and not for interpretation. us Provider Not In System PhD IMG OUTSIDE IMAGING W /OUT INTERPRETATION Final Result documented in this encounter Visit Diagnoses Not on filedocumented in this encounter Care Teams Performance Improvement Consultant Relationship Specialty Start Date End Date Yanni Nguyen MD PCP - General Internal Medicine 04/05/18 documented as of this encounter Additional Source Comments The information contained in this document represents components of the legal health record. It is not the complete legal health record.[facility]
--- OUTSIDE RECORDS SUMMARY | 2025-04-27 12:25 | XMS_ITS | Encounter Summary ---
Author Organization [employer] Address [address] [facility] [address]t [place] [address] Care Team Providers Care General Road Production Manager Name Role Phone Unavailable Primary Care Provider Unavailabl e Reason for Visit * Reason Onset Date Comments referral 11/22/2024 Encounter Details Date Type Department Care Team (Late st Contact Info) Description 11/22/2024 Telephone [facility] ADULT DENTAL [address] [place] [address] Selena Wagner DDS referral Social History Tobacco Use Types Packs/Day Years [...] encounter Miscellaneous Notes * Telephone Encounter - Charla Clark - 11/22/2024 11:33 AM EDT Patient is active requesrted for an appt with the Oral Surgeon. She would like a referral to go elsewhere. Can referral be written up for patient so she can pick up worker? documented in this encounter Plan of Treatment Not on file documented as of this encounter Visit Diagnoses Not on filedocumented in this encounter
--- OUTSIDE RECORDS SUMMARY | 2025-04-27 12:25 | XMS_ITS | Encounter Summary ---
Author Organization [employer] Address [address] [facility] [address] [place] [address] Care Team Providers Care Coordinator Mining Products Name Role Phone Unavailable Primary Care Provider Unavailabl e Reason for Visit * Reason Comments Med Refill Encounter Details Date Type Department Care Team (Late st Contact Info) Description 11/09/2023 Refill [facility] ADULT DENTAL [address] [place] [address] Kizzy Lipscomb BDS Social History Tobacco Use [...] Telephone Encounter - Kizzy Lipscomb BDS - 11/09/2023 8:06 AM EDT Approving, but needs appt for additional refills. documented in this encounter Plan of Treatment Not on file documented as of this encounter Visit Diagnoses Not on filedocumented in this encounter
--- OUTSIDE RECORDS SUMMARY | 2025-04-27 12:25 | XMS_ITS | Encounter Summary ---
Author Organization [employer] Address [address] [facility] [address] [place] [address] Care Team Providers Care Trace Clerk Name Role Phone Unavailable Primary Care Provider Unavailabl e Encounter Details Date Type Department Care Team (Late st Contact Info) Description 09/10/2023 Telephone [facility] ADULT DENTAL [address] [place] [address] Kizzy Lipscomb BDS Social History Tobacco Use [...] encounter Miscellaneous Notes * Telephone Encounter - Destinee Zhu - 09/10/2023 9:21 AM EDT Patient needs her moth wash send to her pharmacy at [facility] on [address] [place] . documented in this encounter Plan of Treatment Not on file documented as of this encounter Visit Diagnoses Not on filedocumented in this encounter
--- OUTSIDE RECORDS SUMMARY | 2025-04-27 12:25 | XMS_ITS | Encounter Summary ---
Author Organization [employer] Address [address] [facility] [address] [place] [address] Care Team Providers Care Salesperson Burial Needs Name Role Phone Unavailable Primary Care Provider Unavailabl e Encounter Details Date Type Department Care Team (Late st Contact Info) Description 07/06/2023 Abstract [facility] ADULT DENTAL [address] [place] [address] Melissa Ortiz DDS [address] [place] [address] Social History Tobacco Use Types Packs/Day Years [...]
--- OUTSIDE RECORDS SUMMARY | 2025-04-27 12:25 | XMS_ITS | Clinical Summary ---
Author Organization [facility] Address [address] [place] [address] Phone Care Team Providers Care Sales Incentive Analyst Name Role Phone Yanni Nguyen MD Primary Care Provider + Allergies Active Allergy Reactions Criticality Noted Date Comments Codeine Hives 06/03/2018 Latex 06/20/2019 Oxycodone Hives 06/03/2018 Sulfamethoxazole-Trimethoprim 2019 Medications estradiol (CLIMARA) 0.075 mg/[address] 1 patch onto the skin once a week. 12 patch 3 9 Active cyanocobalamin (VITAMIN B-12) 1,000 mcg/mL injection cyanocobalamin (vit B-12) 1,000 mcg/mL injection solution Active Active Problems Problem Noted Date Diagnosed Date Encounter for annual routine gynecological exami nation 05/19/2019 External hemorrhoid 05/19/2019 Onychomycosis 05/05/2019 Menopause syndrome 06/03/2018 Midline cystocele 04/29/2017 OAB (overactive bladder) 04/29/2017 Family History Medical History Relation Comments Diabetes Mother Hypertension Mother Relation Status Comments Mother Social History Tobacco Use Types Packs/Day Years Used Date Smoking Tobacco: Never Smokeless Tobacco: Never Alcohol Use Standard Drinks/Week Comments Yes 0 (1 standard drink = 0.6 oz pur e alcohol) socailly Education Answer Date Recorded Are you interested in more education? Not on dequan e 09/19/2022 Are you concerned about learning? Not on file 09/19/2022 No 09/19/2022 No 09/19/2022 Digital Access Answer Date Recorded No 10/20/2022 No 10/20/2022 Reliable internet access at home? Not on file 10/20/2022 Device with a working camera? Not on file Comments No Sex and Gender Information Value Date Recorded Sex Assigned at Not on file Legal Sex Female 9:47 PM EDT Gender Identity Not on file Sexual Orientation Not on file Last Filed Vital Signs Vital Sign Reading Time Taken Comments Blood Pressure 116/70 05/19/2019 9:09 AM EST Pulse - - Temperature - - Respiratory Rate - - Oxygen Saturation - - Inhaled Oxygen Concentration - - Weight 97.8 kg (215 lb 9.6 oz) 05/19/2019 9:09 A M EST Height 172.7 cm (5' 8 ) 05/19/2019 9:09 AM EST Body Mass Index 32.78 05/19/2019 9:09 AM EST Plan of Treatment Health Maintenance Due Date Last Done Comments Adult Td,Tdap Booster 1960 LIPID PANEL 1960 DEPRESSION SCREENING 1972 HEPATITIS C SCREENING 1978 HIV ONE-TIME SCREENING (18-65 YEARS) 1978 PAP SMEAR 1981 SMOKING STATUS SCREENING (Once After 26 Yrs) 1986 COLOGUARD 2005 COLONOSCOPY 2005 COLORECTAL CANCER SCREENING 2005 FIT TEST 2005 FOBT 2005 SIGMOIDOSCOPY 2005 VIRTUAL COLONOSCOPY 2005 PNEUMOCOCCAL VACCINES (50+ years) (1 of 1 - PCV) 2010 ZOSTER VACCINES (1 of 2) 2010 MAMMOGRAM 03/01/2023 03/01/2021, 06/0 06/2020, 05/19/2019, Additional history exists INFLUENZA VACCINE (#1) 2024 COVID-19 VACCINE (2 - 2024- season) 2025 08/14/2020 RSV VACCINE (1 - 1-dose 75+ series) 12/19/2035 HEPATITIS A VACCINES Aged Out No long er eligible based on patient's age to complete this topic HIB VACCINES Aged Out No longer eligi ble based on patient's age to complete this topic MENINGOCOCCAL VACCINES (ACWY) Aged Out No longer eligible based on patient's age to complete this topic MENINGOCOCCAL VACCINES (B) Aged Out N o longer eligible based on patient's age to complete this topic Medical Devices Not on file Procedures Procedure Name Priority Date/Time Associated Diagnosis Comments BI MAMMOGRAM OUTSIDE (NO INTERPRETATION) Routine 03/01/2021 12:00 AM EDT from Last 3 Months or Most Recently Relevant to Health Maintenance Results * Mammogram Outside (No Interpretation) (03/01/2021 12:00 AM EDT) Narrative SYSTEMGENERATED, DOCUMENTATION - 04/22/2021 11:30 AM EST This study is for PACS storage only and not for interpretation. us Provider Not In System PhD IMG OUTSIDE IMAGING W /OUT INTERPRETATION Final Result from Last 3 Months or Most Recently Relevant to Health Maintenance Insurance [facility] MEDICARE REPLACEMENT [facility] MEDICARE REPLACEMENT MEDICARE REPLACEMENT MEDICARE REPLACEMENT [facility] MEDICARE REPLACEMENT MEDICARE REPLACEMENT MEDICARE REPLACEMENT [facility] MEDICARE REPLACEMENT [facility] [employer] MEDICARE REPLACEMENT [place] [id number] Care Teams Sales Incentive Analyst Relationship Specialty Start Date End Date Yanni Nguyen MD PCP - General Internal Medicine 04/05/18 Additional Source Comments The information contained in this document represents components of the legal health record. It is not the complete legal health record.[facility]
--- OUTSIDE RECORDS SUMMARY | 2025-04-27 12:26 | XMS_ITS | Clinical Summary ---
Demographics Address [address] [facility] [place] [address] Mobile Phone Home Phone Preferred Language en Marital Status Rastafari Affiliation Unknown Race Black or Lore rican Ethnic Group Not or Lati no Author Organization [facility] Address [address] [place] [address] Phone Care Team Providers Care Business Travel Consultant Name Role Phone Yanni Nguyen MD Primary Care Provider [phone]- [phone] Allergies Active Allergy Reactions Criticality Noted Date Comments [place] Other 10/05/2024 Itchy throat Codeine Other,Hallucinations , Hives 04/28/2017 codeine Contact Metal Agent 03/29/2024 Doxycycline Rash 06/24/2024 Gabapentin GI intolerance 10/05/2024 Tightness in chest Ibuprofen Hives 04/09/2023 Latex Rash,Itching 04/28/2017 Methocarbamol GI intolerance 06/24/2024 Moxifloxacin Hives 06/24/2024 Naproxen GI intolerance 04/09/2023 Tightness in chest Oxycodone Hallucinations,Hives 06/03/2018 [place] Other 10/05/2024 Itchy throat Penicillin V Hives 04/09/2023 Penicillins 09/17/2023 Sulfamethoxazole-Trimet hoprim Rash,Hives,Other 04/28/2017 Bactrim Medications ACETAMINOPHEN ORAL Take by mouth. Activ e vitamin B complex (B COMPLEX ORAL) Take by mouth. A ctive polycarbophil (FIBERCON) 625 mg tablet Take 1 tablet (625 mg total) by mouth. 0 Active CALCIUM CITRATE-VITAMIN D3 ORAL Take by mouth. Activ e DICLOFENAC SODIUM ORAL 0 Refills, Maintenance, 09/03/23 8:51:00 EDT, Partial fill upon patient request if the prescription is for a schedule II opioid drug. 4 Active estradioL (VAGIFEM) 10 mcg tablet vaginal tablet See Instructions, INSERT 1 TABLET VAGINALLY EVERY THURSDAY AND THURSDAY, # 40 tablet, 1 Refills, 04/07/23 14:30:00 EST, [facility]/pharmacy #[id number], 176, cm, 03/13/23 3:42:00 EDT, Height, 109.4, kg, 03/17/23 15:24:00 EDT, Dry Weight 3 Active KETOCONAZOLE ORAL 3 Active lidocaine (LIDODERM) 5 % patch APPLY 1 PATCH TO SKIN DIRECTED 12 HRS ON 12 HRS OFF 4 Active minoxidiL (LONITEN) 2.5 mg tablet TAKE 1 TABLET DAILY FOR HAIR LOSS. 4 Active mirabegron (Myrbetriq) 25 mg 24 hr tablet Take 1 tablet (25 mg total) by mouth 1 (one) time each day. Active polyethylene glycol (GoLYTELY) 236-22.74-6.74 -5.86 gram solution Take 4,000 mL by mouth. 0 Active LORAZEPAM ORAL Take by mouth. Active multivitamin tablet Take by mouth. Activ e levocetirizine (XYZAL) 5 mg tablet Take 1 tablet (5 mg total) by mouth daily. 3 Active meloxicam (MOBIC) 7.5 mg tablet Take 1 tablet (7.5 mg total) by mouth 1 (one) time each day with breakfast. 3 Active nortriptyline (PAMELOR) 25 mg capsule Take 1 capsule (25 mg total) by mouth. at bedtime 4 Active omega 4-imo-iuf-fish oil 1,000 (120-180) mg capsule Take 1 capsule (1,000 mg total) by mouth 2 (two) times a day. 4 Active albuterol HFA (PROAIR HFA ; PROVENTIL HFA ; VENTOLIN HFA) 90 mcg/actuation inhaler Inhale 2 puffs by mouth every 4 (four) hours if needed for wheezing. 18 g 5 Active betamethasone valerate (VALISONE) 0.1 % lotion USE MAINTENANCE DOSING OF 3 X WEEKLY 5 Active calcium carbonate-vitami n D 600 mg-10 mcg (400 unit) per tablet Take 1 tablet by mouth 1 (one) time each day. Active cyanocobalamin (VITAMIN B-12) 1,000 mcg tablet Take 1 tablet (1,000 mcg total) by mouth 1 (one) time each day. Active fluocinolone and shower cap 0.01 % oil APPLY TO SCALP NIGHTLY FOR 1 WEEK, THEN USE ONCE WEEKLY THEREAFTER. WASH OFF IN THE MORNING 5 Active gabapentin (NEURONTIN) 100 mg capsule See Instructions, take 1 capsule by mouth at bedtime, can increase to 2 capsules at night during week 2 and then 3 capsules at night week 3 as tolerated, # 90 capsule, Refills 3, Tot. Refills 3, Maintenance, 04/19/24 4:44:00 PM EST, Instructions Replace Required Details, Route to Pharmacy Electronically, [facility]/pharmacy #[id number], Partial fill upon patient request if the prescription is for a schedule II opioid drug., 175, cm, 03/31/24 9:20:00 EST, Height, 109.4, kg, 03/31/24 9:20:00 EST, Dry Weight 4 Active nystatin (MYCOSTATIN) 100,000 unit/gram powder APPLY TO AFFECTED AREAS UNDER THE BREASTS AFTER SHOWERS. 4 Active Vitamin B-2 100 mg tablet Take 2 tablets (200 mg total) by mouth 2 (two) times a day. Active ondansetron (ZOFRAN) 4 mg tabletIndication s:Obesity, Class II, BMI 35-39.9 TAKE 1 TABLET (4 MG TOTAL) BY MOUTH EVERY 8 HOURS IF NEEDED FOR NAUSEA OR VOMITING FOR UP TO 7 DAYS. 20 tablet 5 Active hydrocortisone (ANUSOL-HC) 2.5 % rectal creamIndications :Chronic idiopathic constipation INSERT INTO THE RECTUM 2 TIMES A DAY FOR 10 DAYS. 30 g 5 Active Additional Information Patient not taking.Reported on 10/05/2024 polyethylene glycol (MIRALAX) 17 gram packetIndication s:Chronic idiopathic constipation,Denise nomatous polyp of colon, unspecified part of colon Take 17 g by mouth 1 (one) time each day. 510 g 11 5 026 Active psyllium (Fiber, psyllium husk,) 0.4 gram capsuleIndicatio ns:Chronic idiopathic constipation,Denise nomatous polyp of colon, unspecified part of colon Take 2 capsules (800 mg total) by mouth 1 (one) time each day. 60 capsule 11 5 026 Active lactobacillus combination no.4 (Probiotic) 3 billion cell capsuleIndicatio ns:Chronic idiopathic constipation,Denise nomatous polyp of colon, unspecified part of colon Take 1 capsule by mouth 1 (one) time each day. 30 each 11 5 026 Active Additional Information Patient not taking.Reported on 10/05/2024 polyethylene glycol (Golytely) 236-22.74-6.74 -5.86 gram solution Take 4L by mouth once for one dose. May substitue any PEG. Starting at 6PM the night before your procedure drink 1 8oz glasses at your own pace until you complete half of the gallon. Finish 2nd half of the gallon 5 hours before your procedure. 4000 mL 5 Active bisacodyL (DULCOLAX) 5 mg EC tablet Take 2 tablets by mouth right before beginning bowel prep. See instructions provided by the office 2 tablet 5 Active Saline NasaL 0.65 % nasal spray SPRAY 2 SPRAYS NASALLY TWICE A DAY 5 Active triamcinolone (KENALOG) 0.1 % lotion APPLY TO SCALP 3 X WEEKLY 5 Active omeprazole (PriLOSEC) [address] capsule TAKE 1 CAPSULE BY MOUTH DAILY ON EMPTY STOMACH 5 Active ketorolac (ACULAR) 0.5 % ophthalmic solution INSTILL 1 DROP INTO BOTH EYES 3 TIMES A DAY Active fluoride, sodium, 1.1 % paste PLEASE USE PEA SIZE TO BRUSH YOUR TEETH TWICE DAILY. SPIT AFTER BRUSHING. DO NOT RINSE. 5 Active EPINEPHrine (EPIPEN) 0.3 mg/0.3 mL injection INJECT 1 PEN INJECTOR SINGLE DOSE NEEDED Active flaxseed oiL 1,000 mg capsule Take 1 capsule (1,000 mg total) by mouth 1 (one) time each day. 5 Active ammonium lactate (AMLACTIN) 12 % cream APPLY TOPICALLY TO THE ELBOW TWICE A DAY Active ciclopirox (PENLAC) 8 % solution PLEASE SEE ATTACHED FOR DETAILED DIRECTIONS 4 Active vitamin E, dl,tocopheryl acet, (vitamin E, dl, acetate,) 45 mg (100 unit) capsule Take 1 capsule (100 Units total) by mouth 1 (one) time each day. Active bisacodyL (DULCOLAX) 5 mg EC tablet Take 2 tablets by mouth right before beginning bowel prep. See instructions provided by the office 2 tablet 5 Active polyethylene glycol (MIRALAX) 17 gram packet Empty 8 ounces of Miralax into 128 ounces (1 gallon) of Gatorade, mix well. Starting at 4pm the night before procedure drink as tolerated until half of the total amount is completed. Give 4 hours break, then finish the remainder 227 g 5 Active semaglutide (Wegovy) 0.25 mg/0.5 mL injection penIndications:O besity, Class II, BMI 35-39.9 Inject 0.25 mg under the skin every 7 (seven) days. 4 mL 1 5 Active Active Problems Problem Noted Date Diagnosed Date Vitamin D deficiency 06/24/2024 SVT (supraventricular tachycardia) (CMS/[facility] V24) 06/24/2024 Hypercholesteremia 06/24/2024 Class 2 obesity with body ma ss index (BMI) of 36.0 to 36.9 in adult 02/26/2024 OAB (overactive bladder) 04/29/2017 Midline cystocele 04/29/2017 Encounters Date Type Department Care Team Description 04/17/2025 Telephone Bariatric Surgery [address] [phone] Alee Goodman MD 03/28/2025 Telephone Bariatric Surgery [address] [address] Alee Goodman MD 02/15/2025 Telephone Bariatric Surgery [address] [address] Alee Goodman MD 02/10/2025 Telephone Bariatric Surgery [address] [address] Alee Goodman MD 01/30/2025 Telephone Bariatric Surgery - [address] [place] [address] Alee Goodman MD from Last 3 Months Immunizations Immunization Administration Dates Next Due Influenza Quadrivalent, 0.5m l, preservative free (Fluarix; FluLaval; Fluzone) ages 6mo and older (Afluria) 3yo and older 03/19/2023 Influenza trivalent, 0.5mL, preservative free (Fluarix; FluLaval; Fluzone) ages 6mo and older (Afluria) 3 years and older 07/04/2019 Influenza trivalent, with pr eservative (Fluzone; Afluria) 6mo and older 03/17/2022,03/20/2016,03/15/2014 Pneumococcal polysaccharide 23 valent (Pneumovax 23) 2yo and older 05/03/2018 SARS-COV-2 (COVID-19) Vaccine, Unspecified 03/19 Tdap Tetanus diptheria acell ular pertussis (Boostrix; Adacel) 7yo and older 06/27/2014 Surgical History Surgery Date Site/Laterality Comments SLEEVE GASTROPLASTY 07/11/2017 Dr. Lal - miguel sleeve gastrectomy with hiatal hernia repair COLONOSCOPY 11/23/2019 Dr. Marti for GI bleed - one tiny polyp COLONOSCOPY 07/01/2011 Dr. Stallworth- normal exam HEMORRHOID SURGERY 05/25/2006 - 05/24/2007 Dr. Velazquez HYSTERECTOMY 05/25/2001 - 05/24/2002 Medical History Medical History Date Comments GERD (gastroesophageal reflux disease) Chronic constipation H. pylori infection 2017 s/p successf ul eradication with negative breath test 08/15/21 Anxiety Rectocele 2015 Noted on exam by [facility] - [facility] Family History Medical History Relation Name Comments Colon cancer Neg Hx Colonic polyp Neg Hx Social History Tobacco Use Types Packs/Day Years Used Date Smoking Tobacco: Never Smokeless Tobacco: Never Alcohol Use Standard Drinks/Week Comments Yes 0 (1 standard drink = 0.6 oz pur e alcohol) Interpersonal Safety Answer Date Record ed Physical Abuse Unrecognized value 10/13/2024 Verbal Abuse Unrecognized value 10/13/2024 Comments Unknown Sex and Gender Information Value Date Recorded Sex Assigned at Female 06/23/2024 5:40 PM EST Legal Sex Female 1:44 PM EST Gender Identity Female 06/23/2024 5:40 PM EST Sexual Orientation Straight 06/23/2024 5: 40 PM EST Obstetrics History Last Filed Vital Signs Vital Sign Reading Time Taken Comments Blood Pressure 110/87 10/13/2024 12:52 PM EDT Pulse 66 10/13/2024 12:52 PM EDT Temperature 36.1 C (97 F) 10/13/2024 12:32 PM EDT Respiratory Rate 15 10/13/2024 12:52 PM EDT Oxygen Saturation 100% 10/13/2024 12:52 PM EDT Inhaled Oxygen Concentration - - Weight 109 kg (240 lb) 10/05/2024 10:00 AM EDT Height 177.8 cm (5' 10 ) 10/05/2024 10:00 AM EDT Body Mass Index 34.44 10/05/2024 10:00 AM EDT Plan of Treatment Upcoming Encounters Date Type Department Care Team (Late st Contact Info) Description 05/24/2025 9:30 AM EST Office Visit Bariatric Surgery - [address] [place] [address] Alee Goodman MD [address] [place] [phone] Health Maintenance Due Date Last Done Comments Cervical Cancer Screening: Pap Smear 1981 RSV Immunization Adult Patients (1 - Risk 50-74 years 1-dose series) 2010 02/05/2025 Zoster Vaccines (1 of 2) 2010 02/05/2025 Pneumococcal Vaccine: 50+ Years (2 of 2 - PCV) 05/03/2019 05/03/2018 HIV Screening 05/04/2022 Hepatitis C Screening 05/04/2022 Medicare Annual Wellness Visit 05/04/2022 Social Influencers of Health Screening 05/04/2022 Depression Screening 05/25/2024 DTaP,Tdap,and Td Vaccines (2 - Td or Tdap) 06/27/2024 06/27/2014 COVID-19 Vaccine ( season) 2025 03/19/2022, 05/27/2021, 09/05/2020, Additional history exists Influenza Vaccine (#1) 2025 , 03/19/2023, 03/17/2022, Additional history exists Breast Cancer Screening 02/06/2025 02/06/2023 Cholesterol Screening (Lipid Panel) 06/16/2029 06/16/2024 Colorectal Cancer Screening: Colonoscopy 12/23/2034 12/23/2024, 10/13/2024, 11/23/2019 HIB Vaccines Aged Out No longer eligi [...] on patient's age to complete this topic MMR Vaccines Aged Out No longer eligi ble based on patient's age to complete this topic Meningococcal ACWY Vaccine Aged Out N o longer eligible based on patient's age to complete this topic Meningococcal B Vaccine Aged Out No l onger eligible based on patient's age to complete this topic RSV Immunization Patients Under 20 months Aged Out No longer eligible based on patient's age to complete this topic Varicella Vaccines Aged Out No longer eligible based on patient's age to complete this topic Procedures Procedure Name Priority Date/Time Associated Diagnosis Comments COLONOSCOPY Routine 12/23/2024 3:34 PM EDT LIPID PANEL WITH REFLEX TO DIRECT LDL Routine 06/16/2024 11:59 AM EST Obesity, Class II, BMI 35-39.9 PAULINE SCREENING DIGITAL Routine 02/06/2023 1:31 PM EDT Encounter for screening mammogram for malignant neoplasm of breast from Last 3 Months or Most Recently Relevant to Health Maintenance Results * COLONOSCOPY (12/23/2024 3:34 PM EDT) Anatomical Region Laterality Modality Endoscopy us Historical Provider GI~PROCEDURE ORDERABLES F inal Result * (ABNORMAL) Lipid panel with reflex to direct LDL (06/16/2024 11:59 AM EST) Cholesterol 230(H) 0 - 200 mg/dL LAB CHEMISTRY METHOD 06/16/2024 3:07 PM EST [facility] Triglycerides 110 0 - 150 mg/dL LAB CHEMISTRY METHOD 06/16/2024 3:07 PM EST [facility] HDL 68 >=40 mg/dL LAB CHEMISTRY METHOD 06/16/2024 3:07 PM EST [facility] LDL Calculated 140(H) 0 - 100 mg/dL LAB CHEMISTRY METHOD 06/16/2024 3:07 PM EST [facility] VLDL Cholesterol Guillermo 22 mg/dL LAB CHEMISTRY METHOD 06/16/2024 3:07 PM EST [facility] Non HDL Chol. (LDL+VLDL) 162(H) <145 mg/dL LAB CHEMISTRY METHOD 06/16/2024 3:07 PM EST [facility] Chol/HDL Ratio 3.4 0.0 - 4.4 LAB CHEMISTRY METHOD 06/16/2024 3:07 PM EST [facility] Blood Venous blood specimen / Unknown Venipuncture / Unknown 06/16/2024 11:59 AM EST 06/16/2024 11:59 AM EST us Alee Goodman MD LAB BLOOD ORDERABLES Final R esult [facility] [address] [place] [address], * PAULINE SCREENING DIGITAL (02/06/2023 1:31 PM EDT) Anatomical Region Laterality Modality Mammography 02/06/2023 11:4 5 AM EDT Narrative 02/06/2023 1:31 PM EDT [facility] Diagnostic Imaging Department [address] [place] [address] Patient: ADRIENNE BRYSON /Age/Sex: 1960 - 62 - F Unit#: [id number] Location/Status: SPDIMAM/REG CLI Mnemonic/Ordering Site: [facility] Ordering Physician: MARVIN ARNOLD MD [facility] Screening Digital - 02/06/23 - 1154 Report Status:Signed EXAM: [facility] Screening Digital EXAM DATE AND TIME: 02/06/2023 11:54 AM HISTORY: Routine screening mammogram COMPARISON: 01/16/2022, 10/24/2020 TECHNIQUE: Bilateral digital breast tomosynthesis was performed in the CC and MLO projections. Computer aided detection with ImmuMetrix 3D 3.1 was employed. TISSUE DENSITY: b. There are scattered areas of fibroglandular density. FINDINGS: No suspicious masses, grouped microcalcifications, or areas of architectural distortion are seen. The skin and vascularity are unremarkable. There is evid ence for some nonspecific skin thickening along the inferior margin the left areolar and nipple. This is stable when compared to the previous exam. IMPRESSION: Stable mammographic appearance of the breasts. No evidence of malignancy is seen. A negative mammogram in the presence of a clinically suspicious palpable abnormality does not preclude the possibility of malignancy or alter the indications for biopsy. BI-RADS: Category 2: Benign RECOMMENDATION(S): 1: Routine screening mammogram BILATERAL in 1 year. Dictating Physician: REHANA MOROCHO MD Electronically Signed by: REHANA MOROCHO MD Dic Date/Time: 02/06/23 133 Sign date/Time: 02/06/231330 Procedure Note Rehana Morocho MD - 06/30/2023 [facility] Diagnostic Imaging Department [address] [place] [id number] Patient: ADELAIDEADRIENNE./Age/Sex: 1960 - 62 - F Unit#: [id number] Location/Status: SPDIMAM/REG CLI Mnemonic/Ordering Site: [facility] Ordering Physician: MARVIN ARNOLD MD [facility] Screening Digital - 02/06/23 - 1154 Report Status:Signed EXAM: [facility] Screening Digital EXAM DATE AND TIME: 02/06/2023 11:54 AM HISTORY: Routine screening mammogram COMPARISON: 01/16/2022, 10/24/2020 TECHNIQUE: Bilateral digital breast tomosynthesis was performed in the CCand MLO projections. Computer aided detection with ImmuMetrix 3D 3.1was employed. TISSUE DENSITY: b. There are scattered areas of fibroglandular density. FINDINGS: No suspicious masses, grouped microcalcifications, or areas ofarchitectural distortion are seen. The skin and vascularity are unremarkable. There isevid ence for some nonspecific skin thickening along the inferior margin theleft areolar and nipple. This is stable when compared to the previous exam. IMPRESSION: Stable mammographic appearance of the breasts. No evidence of malignancyis seen. A negative mammogram in the presence of a clinically suspicious palpable abnormality does not preclude the possibility of malignancy or alter the indications for biopsy. BI-RADS: Category 2: Benign RECOMMENDATION(S): 1: Routine screening mammogram BILATERAL in 1 year. Dictating Physician: REHANA MOROCHO MD Electronically Signed by: REHANA MOROCHO MD Dic Date/Time: 02/06/23 1330 Sign date/Time: 02/06/23 1331 Marvin Arnold MD IMG BI PROCEDURES Final Resul t from Last 3 Months or Most Recently Relevant to Health Maintenance Insurance [facility] Member Subscriber Plan / Payer (Ef fective 2021-Present) Name:ADRIENNE BRYSON Relation to Subscriber:Self Name:Adrienne Bryson Payer ID:[id number] Group ID:[id number] Type:Not on file Address: [address] [facility] [place] [address] Care Teams Business Travel Consultant Relationship Specialty Start Date End Date Yanni Nguyen MD [address] [place] [address] PCP - General Internal Medicine 03/27/16
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
--- OUTSIDE RECORDS SUMMARY | 2025-04-27 12:26 | XMS_ITS | Encounter Summary ---
Author Organization [employer] Address [address] [facility] [address] [place] [address] Care Team Providers Care Leasing Coordinator Name Role Phone Unavailable Primary Care Provider Unavailabl e Reason for Visit * Reason Comments Med Refill Encounter Details Date Type Department Care Team (Late st Contact Info) Description 02/07/2024 Refill [facility] [address] [place] [address] Kizzy Lipscomb BDS Social History Tobacco Use [...] Telephone Encounter - Kizzy Lipscomb BDS - 02/09/2024 8:45 AM EDT Approving, but needs appt for additional refills. documented in this encounter Plan of Treatment Not on file documented as of this encounter Visit Diagnoses Not on filedocumented in this encounter
--- OUTSIDE RECORDS SUMMARY | 2025-04-27 12:26 | XMS_ITS | Encounter Summary ---
Author Organization [employer] Address [address] [facility] [address] [place] [address] Care Team Providers Care Bisque Finisher Name Role Phone Unavailable Primary Care Provider Unavailabl e Reason for Visit * Reason Comments Med Refill Encounter Details Date Type Department Care Team (Late st Contact Info) Description 05/06/2024 Refill [facility] ADULT D[facility]AL [address] [place] [address] Selena Wagner DDS Social History Tobacco Use Types Packs/Day Years [...] encounter Miscellaneous Notes * Telephone Encounter - Selena Wagner DDS - 05/06/2024 8:54 AM EST Approving, but needs appt for additional refills. documented in this encounter Plan of Treatment Not on file documented as of this encounter Visit Diagnoses Not on filedocumented in this encounter
--- OUTSIDE RECORDS SUMMARY | 2025-04-27 12:26 | XMS_ITS | Encounter Summary ---
Author Organization [facility] Address [address] [place] [phone] Phone Care Team Providers Care Access Manager Name Role Phone Yanni Nguyen MD Primary Care Provider + Encounter Details Date Type Department Care Team (Late st Contact Info) Description 05/29/2020 Ancillary Orders [facility],Outside Imaging [address] [place] [address] System, Provider Not In, [facility] [address] [address] Social History Tobacco Use Types Packs/Day Years [...] encounter Results * Mammogram Outside (No Interpretation) (05/19/2019 12:00 AM EST) Narrative SYSTEMGENERATED, DOCUMENTATION - 05/29/2020 10:04 AM EST This study is for PACS storage only and not for interpretation. us Provider Not In System PhD IMG OUTSIDE IMAGING W /OUT INTERPRETATION Final Result documented in this encounter Visit Diagnoses Not on filedocumented in this encounter Care Teams Access Manager Relationship Specialty Start Date End Date Yanni Nguyen MD PCP - General Internal Medicine 04/05/18 documented as of this encounter Additional Source Comments The information contained in this document represents components of the legal health record. It is not the complete legal health record.[facility]
--- OUTSIDE RECORDS SUMMARY | 2025-04-27 12:26 | XMS_ITS | Encounter Summary ---
Author Organization [facility] Address [address] [place] [address] Phone Care Team Providers Care Facer Operator Name Role Phone Yanni Nguyen MD Primary Care Provider + Encounter Details Date Type Department Care Team (Late st Contact Info) Description 05/29/2020 Ancillary Orders [facility] [address] [place] [address] Liam Hood MD [address] [facility], [address] [place] [address] [email or web address] Breast screening Social History Tobacco Use Types Packs/Day Years [...] documented as of this encounter Visit Diagnoses Diagnosis Breast screening Breast screening, unspecified documented in this encounter Care Teams Facer Operator Relationship Specialty Start Date End Date Yanni Nguyen MD PCP - General Internal Medicine 04/05/18 documented as of this encounter Additional Source Comments The information contained in this document represents components of the legal health record. It is not the complete legal health record.[facility]
--- OUTSIDE RECORDS SUMMARY | 2025-04-27 12:26 | XMS_ITS | Encounter Summary ---
Author Organization [facility] Address [address] [place] [id number] Phone Care Team Providers Care Optimization Manager Name Role Phone Yanni Nguyen MD Primary Care Provider + Encounter Details Date Type Department Care Team (Late st Contact Info) Description 05/29/2020 Ancillary Orders [facility],Outside Imaging [address] [place] [address] System, Provider Not In, [facility] [address] [address] Social History Tobacco Use Types Packs/Day Years [...] encounter Results * Mammogram Outside (No Interpretation) (04/21/2017 12:00 AM EST) Narrative SYSTEMGENERATED, DOCUMENTATION - 05/29/2020 10:01 AM EST This study is for PACS storage only and not for interpretation. us Provider Not In System [facility] OUTSIDE IMAGING W /OUT INTERPRETATION Final Result documented in this encounter Visit Diagnoses Not on filedocumented in this encounter Care Teams Optimization Manager Relationship Specialty Start Date End Date Yanni Nguyen MD PCP - General Internal Medicine 04/05/18 documented as of this encounter Additional Source Comments The information contained in this document represents components of the legal health record. It is not the complete legal health record.[facility]
--- OUTSIDE RECORDS SUMMARY | 2025-04-27 12:26 | XMS_ITS | Encounter Summary ---
Author Organization [employer] Address [address] [facility] [address] [place] [address] Care Team Providers Care Manager Of Learning Name Role Phone Unavailable Primary Care Provider Unavailabl e Reason for Visit * Reason Comments Med Refill Encounter Details Date Type Department Care Team (Late st Contact Info) Description 03/11/2024 Refill [facility] [address] [place] [address] Kizzy Lipscomb BDS Social History Tobacco Use [...] encounter Miscellaneous Notes * Telephone Encounter - Mendez Fernandes DMD - 03/11/2024 8:00 AM EDT Approving, but needs appt for additional refills. documented in this encounter Plan of Treatment Not on file documented as of this encounter Visit Diagnoses Not on filedocumented in this encounter
--- OUTSIDE RECORDS SUMMARY | 2025-04-27 12:26 | XMS_ITS ---
Author Name [facility] Organization Unknown Encounters Encounter Type Encounter Reason Primary Diagnosis Location Date Ambulatory [facility] 03/03/2024 Care Team Organization Name Specialty Phone Email Start Date End Da te [facility] 09/26/2021 01/11/2024 [facility] 12/13/2020 12/13/2020
--- OUTSIDE RECORDS SUMMARY | 2025-04-27 12:26 | XMS_ITS | Encounter Summary ---
Author Organization [facility] Address [address] [place] [phone] Phone Care Team Providers Care Brand Marketing Manager Name Role Phone Yanni Nguyen MD Primary Care Provider + Encounter Details Date Type Department Care Team (Late st Contact Info) Description 05/29/2020 Ancillary Orders [facility],Outside Imaging [address] [place] [address] System, Provider Not In, [facility] [address] [address] Social History Tobacco Use Types Packs/Day Years [...] encounter Results * Mammogram Outside (No Interpretation) (05/07/2018 12:00 AM EST) Narrative SYSTEMGENERATED, DOCUMENTATION - 05/29/2020 10:02 AM EST This study is for PACS storage only and not for interpretation. us Provider Not In System [facility] OUTSIDE IMAGING W /OUT INTERPRETATION Final Result documented in this encounter Visit Diagnoses Not on filedocumented in this encounter Care Teams Brand Marketing Manager Relationship Specialty Start Date End Date Yanni Nguyen MD PCP - General Internal Medicine 04/05/18 documented as of this encounter Additional Source Comments The information contained in this document represents components of the legal health record. It is not the complete legal health record.[facility]
== END 2025-04-27 12:08 | disposition home or self-care (01) ==
LOC: HO.HMCHD 10:17
PROVIDERS: PCP Internal Medicine; Visit Provider Internal Medicine
DX: Z00.00 Encounter for general adult medical examination without abnormal findings (principal); K11.8 Other diseases of salivary glands; I47.10 Supraventricular tachycardia, unspecified

== ENCOUNTER 2025-04-27 11:28 | Outpatient (REF) | payer OTHER, SELFPAY ==
[2025-04-27 13:48] LABS: Hematocrit 44.2 % (37.0-47.0); Hemoglobin 14.0 g/dl (12.0-16.0); Imm Gran Abs Auto 0.01 X10*3/uL (0.00-0.03); Imm Gran Pct Auto 0.2 % (0.0-0.4); Lymphocytes Absolute Auto 4.0 X10*3/uL (1.2-4.9); MANUAL DIFF FLAG SCAN; Mean Corpuscular HGB Conc 31.7 g/dl (31.0-35.0); Mean Corpuscular Hemoglobin 28.7 pg (27.0-33.0); Mean Corpuscular Volume 90.8 fL (80.0-98.0); NRBC Abs Auto 0.000 X10*3/uL (0.0-0.012); NRBC Pct Auto 0.0 /100WBC (0.0-0.2); Platelet Count 236 X10*3/uL (160-400); Red Blood Count 4.87 X10*6/uL (4.20-5.50); SCAN SMEAR FLAG 1; White Blood Count 6.4 X10*3/uL (4.8-10.8)
[2025-04-27 14:21] LABS: Alanine Aminotransferase 18 U/L (0-31); Albumin Level 4.5 g/dL (3.5-5.0); Alkaline Phosphatase 83 U/L (39-117); Anion Gap 8 (12-20); Aspartate Amino Transferase 24 U/L (5-31); Blood Urea Nitrogen 12 mg/dL (9-16); Calcium 9.4 mg/dL (8.4-10.2); Carbon Dioxide 30 mmol/L (22-29); Chloride 109 mmol/L (96-108); Cholesterol 217 mg/dL (<200); Estimated Glomerular Filt Rate > 60; HDL Cholesterol 62 mg/dL (>40); Iron 77 mcg/dL (30-160); Magnesium 2.2 mg/dL (1.6-2.6); Percent Iron Saturation 26 % (15-50); Potassium 4.2 mmol/L (3.3-5.1); Sodium 143 mmol/L (135-145); Total Iron Binding Capacity 300 mcg/dL (228-428); Total Protein 7.4 g/dL (6.5-8.0); Triglycerides 77 mg/dL (<150); Unsaturated Iron Binding 223 ug/dL
[2025-04-27 14:53] LABS: Folate 10.8 ng/mL (> or = 4.0); Vitamin B12 1217 pg/mL (200-900)
== END 2025-04-27 11:29 | disposition home or self-care (01) ==
LOC: HO.10HDL 11:28
PROVIDERS: Visit Provider Internal Medicine
DX: I47.10 Supraventricular tachycardia, unspecified (principal); E78.2 Mixed hyperlipidemia; D51.8 Other vitamin B12 deficiency anemias; E55.9 Vitamin D deficiency, unspecified; K11.8 Other diseases of salivary glands; Z13.31 Encounter for screening for depression; Z13.39 Encounter for screening examination for other mental health and behavioral disorders; M17.12 Unilateral primary osteoarthritis, left knee; E66.9 Obesity, unspecified; H93.13 Tinnitus, bilateral; J30.9 Allergic rhinitis, unspecified; R32 Unspecified urinary incontinence; F41.9 Anxiety disorder, unspecified; Z13.1 Encounter for screening for diabetes mellitus
CPT/HCPCS: 36415; 80053; 80061; 82306; 82607; 82746; 83036; 83540; 83735; 84443; 85025; 96127; 99396